=== PATIENT | male | born 1980 | race Caucasian/White ===

== ENCOUNTER 2017-04-04 09:16 | Emergency (ER) | payer OTHER ==
[2017-04-04 09:17] VITALS: BMI 38.2
[2017-04-04 09:27] VITALS: BP 112/73; PULSE 93; RESP 18; TEMP 98.2; O2SAT 98
--- NOTE | 2017-04-04 10:53 | C.PDOC ---
History Of Present Illness 36yo male presents to the ED for evaluation of decreased hearing in his left ear for the past two weeks. Pt reports his symptoms started after [place]; denies any pain, fever, discharge. Pt currently is using OTC ear drops for ear wax x two weeks without relief. He denies sore throat, cough, runny nose. Time Seen by Provider: 04/04/17 09:46 Chief Complaint (Nursing): ENT Problem History Per: Patient History/Exam Limitations: None Onset/Duration Of Symptoms: Days (2 weeks) Current Symptoms Are (Timing): Still Present Quality (Ear): denies: Discharge Symptoms Have Been: Continuous Severity: Mild Past Medical History Reviewed: Historical Data, Nursing Documentation, Vital Signs Vital Signs: Last Vital Signs Temp 98.2 F 04/04/17 09:25 Pulse 93 H 04/04/17 09:25 Resp 18 04/04/17 09:25 BP 112/73 04/04/17 09:25 Pulse Ox 98 04/04/17 11:06 - Medical History PMH: No Chronic Diseases Surgical History: No Surg Hx Family History: States: No Known Family Hx - Social History Hx Alcohol Use: No Hx Substance Use: No - Immunization History Hx Tetanus Toxoid Vaccination: No Hx Influenza Vaccination: Yes Hx Pneumococcal Vaccination: No Review Of Systems Except As Marked, All Systems Reviewed And Found Negative. Constitutional: Negative for: Fever ENT: Positive for: Other (decreased hearing left ear). Negative for: Ear Discharge, Nose Discharge, Nose Congestion, Throat Pain Respiratory: Negative for: Cough, Shortness of Breath Skin: Negative for: Rash Physical Exam - Physical Exam Appears: Well, Non-toxic, No Acute Distress Skin: Normal Color, Warm, Dry, No Rash Ear(s): Bilateral: TM Obscured By Wax (no canal erythema noted), Other (no discharge noted) Nose: Normal Oral Mucosa: Moist Throat: Normal, No Erythema, No Exudate Cardiovascular: Rhythm Regular Respiratory: Normal Breath Sounds, No Rales, No Rhonchi, No Wheezing Neurological/Psych: Oriented x3 ED Course And Treatment O2 Sat by Pulse Oximetry: 98 (RA) Pulse Ox Interpretation: Normal Progress Note: Debrox instilled into left ear by me. Ear then irrigated with normal saline using 18 gauge angiocath - (+) successful removal of cerumen impaction. Patient reports being able to hear well now. He was given Rx for Debrox, and instructed to follow up with ENt within 1 week. He understands he should return to ED if symptoms worsen. Reevaluation Time: 11:10 Reassessment Condition: Improved Disposition Counseled Patient/Family Regarding: Diagnosis, Need For Followup, Rx Given - Disposition Referrals: Kain Lewis MD [Staff Provider] - [facility] [Outside] [facility] [Outside] Disposition: HOME/ ROUTINE Disposition Time: 11:10 Condition: STABLE Prescriptions: Carbamide Peroxide [Debrox] 5 drop OT BID #1 bottle Instructions: Cerumen Impaction (ED) Forms: [employer] (Japanese) Print Language: SWEDISH - POA Present On Arrival: None - Clinical Impression Clinical Impression: Impacted cerumen of left ear - Scribe Statement The provider has reviewed the documentation as recorded by the Scribe Sudha Sharif Provider Attestation: Provider Scribe Attestation: All medical record entries made by the Scribe were at my direction and personally dictated by me. I have reviewed the chart and agree that the record accurately reflects my personal performance of the history, physical exam, medical decision making, and the department course for this patient. I have also personally directed, reviewed, and agree with the discharge instructions and disposition.
== END 2017-04-04 11:08 | disposition home or self-care (01) ==
LOC: C.ER 09:16
DX: H61.22 Impacted cerumen, left ear (principal)

== ENCOUNTER 2017-04-24 12:38 | Emergency (ER) | payer OTHER ==
[2017-04-24 12:39] VITALS: BMI 38.2
[2017-04-24 12:42] VITALS: TEMP 97.3
--- NOTE | 2017-04-24 13:30 | C.PDOC ---
History Of Present Illness 36 year old male presents to the ED with complaints of swelling to the right side of the abdomen for one month. Patient denies abdominal pain, diarrhea, nausea, vomiting, or fever. Patient reports PMD follow-up on 05/22 Time Seen by Provider: 04/24/17 12:47 Chief Complaint (Nursing): GI Problem History Per: Patient History/Exam Limitations: no limitations Onset/Duration Of Symptoms: Persistent (1 month ) Current Symptoms Are (Timing): Still Present Location Of Pain/Discomfort: Other (right side abdominal swelling ) Radiation Of Pain To:: None Associated Symptoms: denies: Fever, Chills, Nausea, Vomiting, Diarrhea Recent travel outside of the [place]: No Past Medical History Reviewed: Historical Data, Nursing Documentation, Vital Signs Vital Signs: Last Vital Signs Temp 97.3 F L 04/24/17 12:40 Pulse 78 04/24/17 16:19 Resp 18 04/24/17 16:19 BP 119/80 04/24/17 16:19 Pulse Ox 98 04/24/17 16:19 Family History: States: Unknown Family Hx - Social History Hx Alcohol Use: No Hx Substance Use: No - Immunization History Hx Tetanus Toxoid Vaccination: No Hx Influenza Vaccination: Yes Hx Pneumococcal Vaccination: No Review Of Systems Constitutional: Negative for: Fever, Chills Cardiovascular: Negative for: Chest Pain Respiratory: Negative for: Shortness of Breath Gastrointestinal: Positive for: Other (right sided abdominal swelling ). Negative for: Nausea, Vomiting, Abdominal Pain, Diarrhea, Constipation Genitourinary: Negative for: Dysuria, Hematuria Physical Exam - Physical Exam Appears: Well, Non-toxic, No Acute Distress Skin: Warm, Dry Head: Atraumatic Eye(s): bilateral: Normal Inspection Oral Mucosa: Moist Neck: Supple Chest: Symmetrical, No Deformity Cardiovascular: Rhythm Regular Respiratory: Normal Breath Sounds, No Rales, No Rhonchi, No Wheezing Gastrointestinal/Abdominal: Soft, No Tenderness, No Mass, No Distention, No Guarding, No Rebound Back: Normal Inspection Extremity: Normal ROM Neurological/Psych: Oriented x3, Normal Speech, Normal Cognition ED Course And Treatment - Laboratory Results Result Diagrams: 04/24/17 13:52 04/24/17 13:52 O2 Sat by Pulse Oximetry: 95 (room air ) - CT Scan/US Abdomen and Pelvis CT Other Rad Studies (CT/US): Read By Radiologist, Radiology Report Reviewed Progress Note: Abdomen and pelvis CTand labs were ordered. Medical Decision Making Medical Decision Making: Patient has a normal physical exam and I cannot appreciate the swelling patient is concerned about. Labs grossly normal. FINDINGS: Images were obtained in a delayed phase due to patient nausea at the beginning of the examination. LOWER THORAX: No visible consolidation, pleural effusion, or pneumothorax. Tiny hiatal hernia/distal esophageal wall thickening. LIVER: Unremarkable. GALLBLADDER AND BILE DUCTS: Unremarkable. PANCREAS: Unremarkable. SPLEEN: Unremarkable. ADRENALS: Unremarkable. KIDNEYS AND URETERS: The kidneys enhance symmetrically. No hydronephrosis or obstructing calculus identified. VASCULATURE: No aortic aneurysm. BOWEL: Stomach is nondistended. Lack of oral contrast limits evaluation for bowel pathology. Bowel loops appear within normal limits of caliber without evidence of obstruction. APPENDIX: No secondary signs of acute appendicitis. PERITONEUM: No significant free fluid. No definite free air. LYMPH NODES: No bulky adenopathy identified. BLADDER: Unremarkable. REPRODUCTIVE: Unremarkable. BONES: 8 mm sclerotic focus within the T11 vertebral body, possibly bone island. Minimal degenerative changes. No acute osseous abnormality is detected. OTHER FINDINGS: Tiny fat containing umbilical hernia Bilateral fat containing inguinal hernias. IMPRESSION: No acute pathology identified. Incidental findings as above. Patient was made aware of CT results and will follow-up with PMD at scheduled visit. Disposition - Disposition Disposition: HOME/ ROUTINE Disposition Time: 16:08 Condition: GOOD Additional Instructions: Follow up with clinic on 05/22. Return to ED if condition worsens. Instructions: Inguinal Hernia (ED), Umbilical Hernia (ED) Print Language: GERMAN - Clinical Impression Clinical Impression: Umbilical hernia, Inguinal hernia - Scribe Statement The provider has reviewed the documentation as recorded by the Scribe Keke Freeman All medical record entries made by the Scribe were at my direction and personally dictated by me. I have reviewed the chart and agree that the record accurately reflects my personal performance of the history, physical exam, medical decision making, and the department course for this patient. I have also personally directed, reviewed, and agree with the discharge instructions and disposition.
[2017-04-24 13:56] LABS: BASO # 0.1 K/uL (0.0-0.2); BASO % 0.9 % (0.0-2.0); EOS # 0.1 K/uL (0.0-0.7); HEMATOCRIT 45.2 % (35.0-51.0); LYMPH # 2.3 K/uL (1.0-4.3); LYMPH % 32.8 % (20.0-40.0); MEAN CELL VOLUME 85.5 fL (80.0-94.0); MEAN CORPUSCULAR HEMOGLOBIN 28.6 pg (27.0-31.0); MEAN CORPUSCULAR HGB CONC 33.4 g/dL (33.0-37.0); MEAN PLATELET VOLUME 8.6 fL (7.2-11.7); MONO # 0.6 K/uL (0.0-0.8); MONO % 7.9 % (0.0-10.0); RED CELL DISTRIBUTION WIDTH 12.9 % (11.5-14.5)
[2017-04-24 14:06] LABS: CHLORIDE 101 mmol/L (98-107)
[2017-04-24 14:07] LABS: POTASSIUM 3.9 mmol/L (3.6-5.2); SODIUM 137 mmol/L (132-148)
[2017-04-24 14:09] LABS: ALB/GLOB RATIO 1.1 (1.0-2.1); ALKALINE PHOSPHATASE 49 U/L (38-126); AST/SGOT 26 U/L (17-59); BILIRUBIN,TOTAL 0.8 mg/dL (0.2-1.3); BLOOD UREA NITROGEN 15 mg/dL (9-20); CARBON DIOXIDE 22 mmol/L (22-30); GFR AFRICAN-AMERICAN > 60; TOTAL PROTEIN 7.4 g/dL (6.3-8.3)
[2017-04-24 14:10] LABS: ALT/SGPT 49 U/L (21-72); GLUCOSE,RANDOM 99 mg/dL (75-110)
[2017-04-24] MEDS ORDERED: Iodixanol 320 mg/ml 150 ml Bottle IV ONE (15:06)
--- NOTE | 2017-04-24 16:08 | CT ---
PROCEDURE: CT Abdomen and Pelvis with contrast HISTORY: abdominal distension COMPARISON: None available. TECHNIQUE: Contrast dose: 100 cc Visipaque 320 Radiation dose: Total exam DLP = 1029.99 mGy-cm. This CT exam was performed using one or more of the following dose reduction techniques: Automated exposure control, adjustment of the mA and/or kV according to patient size, and/or use of iterative reconstruction technique. FINDINGS: Images were obtained in a delayed phase due to patient nausea at the beginning of the examination. LOWER THORAX: No visible consolidation, pleural effusion, or pneumothorax. Tiny hiatal hernia/distal esophageal wall thickening. LIVER: Unremarkable. GALLBLADDER AND BILE DUCTS: Unremarkable. PANCREAS: Unremarkable. SPLEEN: Unremarkable. ADRENALS: Unremarkable. KIDNEYS AND URETERS: The kidneys enhance symmetrically. No hydronephrosis or obstructing calculus identified. VASCULATURE: No aortic aneurysm. BOWEL: Stomach is nondistended. Lack of oral contrast limits evaluation for bowel pathology. Bowel loops appear within normal limits of caliber without evidence of obstruction. APPENDIX: No secondary signs of acute appendicitis. PERITONEUM: No significant free fluid. No definite free air. LYMPH NODES: No bulky adenopathy identified. BLADDER: Unremarkable. REPRODUCTIVE: Unremarkable. BONES: 8 mm sclerotic focus within the T11 vertebral body, possibly bone island. Minimal degenerative changes. No acute osseous abnormality is detected. OTHER FINDINGS: Tiny fat containing umbilical hernia Bilateral fat containing inguinal hernias. IMPRESSION: No acute pathology identified. Incidental findings as above.
[2017-04-24 16:21] VITALS: BP 119/80; PULSE 78; RESP 18
[2017-04-24 18:07] VITALS: O2SAT 95
== END 2017-04-24 16:21 | disposition home or self-care (01) ==
LOC: C.ER 12:38
DX: K42.9 Umbilical hernia without obstruction or gangrene (principal); K40.90 Unilateral inguinal hernia, without obstruction or gangrene, not specified as recurrent
CPT/HCPCS: 74177; 80053; 83690; 85025; 99284; Q9967

== ENCOUNTER 2017-09-09 10:28 | Emergency (ER) | payer OTHER ==
[2017-09-09 10:34] VITALS: RESP 18; BMI 34.3
[2017-09-09 11:58] LABS: BASO # 0.1 K/uL (0.0-0.2); BASO % 1.1 % (0.0-2.0); EOS # 0.2 K/uL (0.0-0.7); EOS % 2.8 % (0.0-4.0); HEMOGLOBIN 15.5 g/dL (12.0-18.0); LYMPH # 2.1 K/uL (1.0-4.3); LYMPH % 31.2 % (20.0-40.0); MEAN CELL VOLUME 86.5 fL (80.0-94.0); MEAN CORPUSCULAR HEMOGLOBIN 29.3 pg (27.0-31.0); MEAN CORPUSCULAR HGB CONC 33.9 g/dL (33.0-37.0); MEAN PLATELET VOLUME 8.8 fL (7.2-11.7); MONO # 0.5 K/uL (0.0-0.8); MONO % 8.3 % (0.0-10.0); NEUT # 3.7 K/uL (1.8-7.0); NEUT % 56.6 % (50.0-75.0); RBC 5.27 Mil/uL (4.40-5.90); WHITE BLOOD COUNT 6.6 K/uL (4.8-10.8)
[2017-09-09 12:18] LABS: URINE BILIRUBIN NEGATIVE (NEGATIVE); URINE BLOOD NEGATIVE (NEGATIVE); URINE CLARITY Clear (Clear); URINE COLOR Yellow (YELLOW); URINE GLUCOSE (UA) NORMAL (Normal); URINE LEUKOCYTE ESTERASE NEG Leu/uL (Negative); URINE NITRATE NEGATIVE (NEGATIVE); URINE PROTEIN NEGATIVE (NEGATIVE); URINE UROBILINOGEN NORMAL mg/dL (0.2-1.0)
[2017-09-09 12:18] LABS: ALB/GLOB RATIO 1.2 (1.0-2.1); ALT/SGPT 34 U/L (21-72); AMYLASE 51 U/L (30-110); AST/SGOT 22 U/L (17-59); BLOOD UREA NITROGEN 13 mg/dL (9-20); CALCIUM 8.5 mg/dl (8.6-10.4); GFR AFRICAN-AMERICAN > 60; GFR NON-AFRICAN AMERICAN > 60; LIPASE 112 U/L (23-300)
--- NOTE | 2017-09-09 13:21 | US ---
HISTORY: epigastric and RUQ pain COMPARISON: CT abdomen and pelvis with IV contrast performed 04/24/17 TECHNIQUE: Sonographic evaluation of the right upper quadrant of the abdomen. FINDINGS: LIVER: Measures 15.5 cm in length. Echogenic liver may be seen in setting of hepatic parenchymal disease or fatty infiltration. The main portal vein appears patent with normal directional flow. No intrahepatic bile duct dilatation. GALLBLADDER: No gallstones. No gallbladder wall thickening or pericholecystic edema. Negative sonographic Owens's sign as assessed by the accounting administrator. COMMON BILE DUCT: Measures 3 mm. PANCREAS: Not well-visualized. RIGHT KIDNEY: Measures 11.3 x 6.9 x 5.5 cm. No obstructing calculus or hydronephrosis identified. AORTA: Limited visualization appears grossly unremarkable. IVC: Limited visualization appears grossly unremarkable. OTHER FINDINGS: None . IMPRESSION: Echogenic liver may be seen in setting of hepatic parenchymal disease or fatty infiltration.
--- NOTE | 2017-09-09 13:52 | C.PDOC ---
History Of Present Illness 37 year old male presents to the ED c/o RUQ and epigastric pain for the past 4 months. Patient reports he was seen in the ED on June was sent to the clinic and he has an appointment for the end of September there. Patient presents today because he feel nervous and anxious because his pain is still present, Patient states he has no pain right now. Patient denies fever, chills, nausea, fever, vomit, diarrhea, back pain, dysuria, hematuria. Time Seen by Provider: 09/09/17 11:01 Chief Complaint (Nursing): Abdominal Pain History Per: Patient History/Exam Limitations: no limitations Onset/Duration Of Symptoms: Days Current Symptoms Are (Timing): Still Present Location Of Pain/Discomfort: RUQ, Epigastric Radiation Of Pain To:: None Quality Of Discomfort: "Pain" Associated Symptoms: denies: Fever, Nausea, Vomiting, Diarrhea, Constipation Alleviating Factors: None Recent travel outside of the [place]: No Additional History Per: Patient Past Medical History Reviewed: Historical Data, Nursing Documentation, Vital Signs Vital Signs: Last Vital Signs Temp 98.2 F 09/09/17 14:12 Pulse 88 09/09/17 14:12 Resp 18 09/09/17 14:12 BP 131/87 09/09/17 14:12 Pulse Ox 99 09/09/17 15:33 - Medical History PMH: Gastritis Surgical History: No Surg Hx Family History: States: Unknown Family Hx - Social History Hx Alcohol Use: No Hx Substance Use: No - Immunization History Hx Tetanus Toxoid Vaccination: No Hx Influenza Vaccination: Yes Hx Pneumococcal Vaccination: No Review Of Systems Constitutional: Negative for: Fever, Chills Cardiovascular: Negative for: Chest Pain, Palpitations Respiratory: Negative for: Cough Gastrointestinal: Positive for: Abdominal Pain. Negative for: Nausea, Vomiting Genitourinary: Negative for: Dysuria, Hematuria Musculoskeletal: Negative for: Back Pain Skin: Negative for: Rash Neurological: Negative for: Weakness, Numbness Physical Exam - Physical Exam Appears: Non-toxic, No Acute Distress Skin: Normal Color, Warm, Dry Head: Atraumatic, Normacephalic Nose: No Discharge, No Deformity Oral Mucosa: Moist Neck: Normal ROM, Supple Chest: Symmetrical Cardiovascular: Rhythm Regular, No Murmur Respiratory: Normal Breath Sounds, No Rales, No Rhonchi, No Wheezing Gastrointestinal/Abdominal: Soft, No Tenderness, No Guarding, No Rebound Extremity: Normal ROM, No Pedal Edema, No Calf Tenderness, No Deformity, No Swelling Neurological/Psych: Oriented x3, Normal Speech, Normal Cognition Gait: Steady ED Course And Treatment - Laboratory Results Result Diagrams: 09/09/17 11:54 09/09/17 11:54 O2 Sat by Pulse Oximetry: 99 (On RA) Pulse Ox Interpretation: Normal - CT Scan/US Abdomen US Other Rad Studies (CT/US): Read By Radiologist, Radiology Report Reviewed CT/US Interpretation: HISTORY: epigastric and RUQ pain. COMPARISON: CT abdomen and pelvis with IV contrast performed 04/24/17. TECHNIQUE: Sonographic evaluation of the right upper quadrant of the abdomen. FINDINGS: LIVER: Measures 15.5 cm in length. Echogenic liver may be seen in setting of hepatic parenchymal disease or fatty infiltration. The main portal vein appears patent with normal directional flow. No intrahepatic bile duct dilatation. GALLBLADDER : No gallstones. No gallbladder wall thickening or pericholecystic edema. Negative sonographic Owens's sign as assessed by the ground intelligence officer. COMMON BILE DUCT: Measures 3 mm. PANCREAS: Not well-visualized. RIGHT KIDNEY: Measures 11.3 x 6.9 x 5.5 cm. No obstructing calculus or hydronephrosis identified. AORTA: Limited visualization appears grossly unremarkable. IVC: Limited visualization appears grossly unremarkable. OTHER FINDINGS: None . IMPRESSION : Echogenic liver may be seen in setting of hepatic parenchymal disease or fatty infiltration. Progress Note: Plan: -Labs. -UA. -Abdomen US Disposition - Disposition Referrals: [facility] [Outside] Disposition: HOME/ ROUTINE Disposition Time: 13:50 Condition: STABLE Additional Instructions: Follow up in Clinic within 1-2 days. Return to ED if feel worse. 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 - Scribe Statement The provider has reviewed the documentation as recorded by the Scribe Micky Abrams All medical record entries made by the Scribe were at my direction and personally dictated by me. I have reviewed the chart and agree that the record accurately reflects my personal performance of the history, physical exam, medical decision making, and the department course for this patient. I have also personally directed, reviewed, and agree with the discharge instructions and disposition.
[2017-09-09 14:14] VITALS: BP 131/87; PULSE 88; TEMP 98.2
[2017-09-09 15:26] VITALS: O2SAT 99
== END 2017-09-09 14:14 | disposition home or self-care (01) ==
LOC: C.ER 10:28
DX: R10.13 Epigastric pain (principal)

== ENCOUNTER 2018-03-28 22:28 | Emergency (ER) | payer OTHER ==
[2018-03-28 22:28] VITALS: BMI 34.3
[2018-03-28 22:39] VITALS: BP 138/79; TEMP 98; O2SAT 100
--- NOTE | 2018-03-28 22:53 | C.PDOC ---
History Of Present Illness Patient states that he was on the phone having an argument. He began to feel agitated and was breathing heavily. He developed a pressure sensation in his ears with a mild headache. He felt a numbness and tingling in his hands. He claims the headache has since resolved and his breathing has returned to normal but he continues to feel mildly weak. He denies associate chest pain or palpitations. Time Seen by Provider: 03/28/18 22:45 Chief Complaint (Nursing): Headache History Per: Patient History/Exam Limitations: no limitations Onset/Duration Of Symptoms: Mins, Gradual Current Symptoms Are (Timing): Gone Severity: Mild Quality: Dull, Pressure Preceeding Symptoms: None Associated Symptoms: Other (shortness of breath) Past Medical History Vital Signs: Last Vital Signs Temp 98.0 F 03/28/18 22:34 Pulse 75 03/28/18 22:34 Resp 18 03/28/18 22:34 BP 138/79 03/28/18 22:34 Pulse Ox 100 03/28/18 22:34 - Medical History PMH: Gastritis Surgical History: No Surg Hx Family History: States: Unknown Family Hx - Social History Hx Tobacco Use: No Hx Alcohol Use: No Hx Substance Use: No - Immunization History Hx Tetanus Toxoid Vaccination: No Hx Influenza Vaccination: Yes Hx Pneumococcal Vaccination: No Review Of Systems Constitutional: Positive for: Weakness ENT: Positive for: Ear Pain (pressure) Cardiovascular: Negative for: Chest Pain, Palpitations, Light Headedness Respiratory: Positive for: Shortness of Breath Gastrointestinal: Negative for: Nausea, Vomiting, Abdominal Pain Neurological: Positive for: Weakness (generalized, subjective), Numbness (in hands), Headache, Dizziness. Negative for: Incoordination, Change in Speech, Confusion Psych: Positive for: Anxiety Physical Exam - Physical Exam Appears: Well, No Acute Distress Skin: Normal Color, Warm, Dry Head: Atraumatic Eye(s): bilateral: Normal Inspection, PERRL, EOMI Ear(s): Bilateral: Normal Nose: Normal Oral Mucosa: Moist Lips: Normal Appearing Neck: Normal ROM Lymphatic: No Adenopathy Chest: Symmetrical Cardiovascular: Rhythm Regular Respiratory: Normal Breath Sounds Gastrointestinal/Abdominal: Normal Exam, Soft Extremity: Bilateral: Atraumatic Pulses: Left Carotid: Normal, Right Carotid: Normal Neurological/Psych: Oriented x3, Normal Speech, Normal Cognition, Normal Cranial Nerves, Normal Motor, Normal Sensation, Normal Reflexes ED Course And Treatment O2 Sat by Pulse Oximetry: 100 Disposition Counseled Patient/Family Regarding: Diagnosis, Need For Followup - Disposition Referrals: [facility] [Outside] Disposition: HOME/ ROUTINE Disposition Time: 22:57 Condition: IMPROVED Instructions: Hyperventilation Forms: [employer] (Amharic) - Clinical Impression Clinical Impression: Headache, Hyperventilation
[2018-03-28 23:03] VITALS: PULSE 70; RESP 16
== END 2018-03-28 23:02 | disposition home or self-care (01) ==
LOC: C.ER 22:28
DX: R51 Headache (principal); R06.4 Hyperventilation

== ENCOUNTER 2018-05-18 19:18 | Emergency (ER) | payer OTHER ==
[2018-05-18 19:19] VITALS: BMI 34.3
[2018-05-18 19:33] VITALS: BP 128/85; PULSE 84; RESP 16; O2SAT 97
[2018-05-18] MEDS ORDERED: Lidocaine 5% Patch TD STA (19:45)
[2018-05-18] MEDS ORDERED: Lidocaine 5% Patch TD ONE (19:57)
--- NOTE | 2018-05-18 20:08 | C.PDOC ---
History Of Present Illness 38yo male, otherwise well, comes to ER with complaints of right lower back pain x 1 day, worse with movement. He states he has been taking Tylenol (is allergic to Aspirin and Motrin) with minimal relief of symptoms. Patient denies any heavy lifting, trauma, weakness or numbness of lower extremities, bowel or bladder dysfunction. He has no additional medical complaints. PMD: None provided Time Seen by Provider: 05/18/18 19:40 Chief Complaint (Nursing): Back Pain History Per: Patient History/Exam Limitations: no limitations Onset/Duration Of Symptoms: Days (1) Current Symptoms Are (Timing): Still Present Quality Of Discomfort: "Pain" Associated Symptoms: denies: Incontinence, New Weakness, New Numbness Exacerbating Factor(s): Movement Additional History Per: Patient Past Medical History Reviewed: Historical Data, Nursing Documentation, Vital Signs Vital Signs: Last Vital Signs Temp Pulse 84 05/18/18 19:31 Resp 16 05/18/18 19:31 BP 128/85 05/18/18 19:31 Pulse Ox 97 05/18/18 20:22 - Medical History PMH: Gastritis Denies: Chronic Kidney Disease Surgical History: No Surg Hx Family History: States: Unknown Family Hx - Social History Hx Tobacco Use: No Hx Alcohol Use: No Hx Substance Use: No - Immunization History Hx Tetanus Toxoid Vaccination: No Hx Influenza Vaccination: Yes Hx Pneumococcal Vaccination: No Review Of Systems Except As Marked, All Systems Reviewed And Found Negative. Genitourinary: Negative for: Incontinence Musculoskeletal: Positive for: Back Pain Neurological: Negative for: Weakness, Numbness Physical Exam - Physical Exam Appears: Non-toxic, No Acute Distress Skin: Normal Color Head: Atraumatic, Normacephalic Eye(s): bilateral: Normal Inspection Neck: Supple Chest: Symmetrical Back: Normal Inspection, No CVA Tenderness, No Vertebral Tenderness, Paraspinal Tenderness (right paralumbar tenderness) Extremity: Bilateral: Atraumatic, Normal ROM Neurological/Psych: Oriented x3, Normal Speech ED Course And Treatment O2 Sat by Pulse Oximetry: 97 (RA) Pulse Ox Interpretation: Normal Medical Decision Making Medical Decision Making: Impression: Right lower back pain, likely musculoskeletal Plan: -- Tylenol 975mg PO -- FLexeril 10mg PO -- Lidoderm patch On reassessment, patient reports improvement in pain. Instructed to take medications as advised and to follow up with PMD in 2-3 days. Disposition Counseled Patient/Family Regarding: Diagnosis, Need For Followup, Rx Given - Disposition Referrals: Mery Lerma MD [Staff Provider] - Disposition: HOME/ ROUTINE Disposition Time: 20:07 Condition: STABLE Additional Instructions: Aplicar calor al jennifer New Deal tylenol para el dolor cada 6 horas New Deal el relajante muscular Flexeril cada 8 horas, segn sea necesario, puede causar somnolencia seguimiento en la clnica Prescriptions: Acetaminophen [Tylenol Arthritis] 650 mg PO Q8 #30 tablet.er Cyclobenzaprine [Cyclobenzaprine HCl] 10 mg PO TID #30 tab Instructions: Low Back Pain (DC) Forms: [employer] (Ghanaian) - POA Present On Arrival: None - Clinical Impression Clinical Impression: Thoracic back sprain, Low back strain - 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 - Scribe Statement The provider has reviewed the documentation as recorded by the Scribe (Sudha Sharif) Provider Attestation: All medical record entries made by the Scribe were at my direction and personally dictated by me. I have reviewed the chart and agree that the record accurately reflects my personal performance of the history, physical exam, medical decision making, and the department course for this patient. I have also personally directed, reviewed, and agree with the discharge instructions and disposition.
== END 2018-05-18 20:15 | disposition home or self-care (01) ==
LOC: C.ER 19:18
DX: S23.3XXA Sprain of ligaments of thoracic spine, initial encounter (principal); S39.012A Strain of muscle, fascia and tendon of lower back, initial encounter; X58.XXXA Exposure to other specified factors, initial encounter; Y92.9 Unspecified place or not applicable

== ENCOUNTER 2018-05-20 05:12 | Emergency (ER) | payer OTHER ==
[2018-05-20 05:12] VITALS: BMI 34.3
[2018-05-20 05:32] VITALS: RESP 18
--- NOTE | 2018-05-20 05:47 | C.PDOC ---
History Of Present Illness 38 year old male presents to the ER with a complaint of right sided back pain for the past 3 days. Patient was seen in this ER 2 days ago for the same complaint, he was discharged home on tylenol and a muscle relaxant, however, he states the pain has not improved. Denies weakness, numbness, incontinence, dysuria, hematuria, abdominal pain, fever, or chills.pain worse with movement. pt takeing muscle relaxant as prescribed, but only Tylenol 2 times a day. Time Seen by Provider: 05/20/18 05:33 Chief Complaint (Nursing): Back Pain History Per: Patient History/Exam Limitations: no limitations Onset/Duration Of Symptoms: Days Current Symptoms Are (Timing): Still Present Quality Of Discomfort: Unable To Describe Associated Symptoms: None Recent travel outside of the [place]: No Past Medical History Reviewed: Historical Data, Nursing Documentation, Vital Signs Vital Signs: Last Vital Signs Temp 98.1 F 05/20/18 06:39 Pulse 72 05/20/18 06:39 Resp 18 05/20/18 06:39 BP 130/78 05/20/18 06:39 Pulse Ox 99 05/21/18 00:56 - Medical History PMH: Gastritis Denies: Chronic Kidney Disease Family History: States: Unknown Family Hx - Social History Hx Tobacco Use: No Hx Alcohol Use: No Hx Substance Use: No - Immunization History Hx Tetanus Toxoid Vaccination: No Hx Influenza Vaccination: Yes Hx Pneumococcal Vaccination: No Review Of Systems Constitutional: Negative for: Fever, Chills Gastrointestinal: Negative for: Vomiting Genitourinary: Negative for: Dysuria, Incontinence, Hematuria Musculoskeletal: Positive for: Back Pain Neurological: Negative for: Weakness, Numbness Physical Exam - Physical Exam Appears: Non-toxic, No Acute Distress Skin: Warm, Dry Head: Atraumatic, Normacephalic Eye(s): bilateral: Normal Inspection Oral Mucosa: Moist Chest: Symmetrical, No Tenderness Cardiovascular: Rhythm Regular, No Murmur Respiratory: Normal Breath Sounds, No Rales, No Rhonchi, No Wheezing Gastrointestinal/Abdominal: Bowel Sounds, Soft, No Tenderness, No Distention, No Guarding, No Rebound Back: No Vertebral Tenderness, Paraspinal Tenderness (Right thoracic) Extremity: Normal ROM (x4), No Pedal Edema, No Calf Tenderness, No Swelling Extremity: Bilateral: Atraumatic Neurological/Psych: Oriented x3, Normal Speech, Normal Cognition, Normal Motor, Normal Sensation Gait: Steady ED Course And Treatment - Laboratory Results Result Diagrams: 05/20/18 06:00 05/20/18 06:00 O2 Sat by Pulse Oximetry: 99 (room air) Pulse Ox Interpretation: Normal Medical Decision Making Medical Decision Making: Blood work and urinalysis ordered. Tylenol administered. pt's second visit for same back pain, will check ua and labs. 0629 cbc and cmp normal. ua with +1 blood, <1 rbc. no nitrite or le. d/c home with instructions to take Tylenol more frequently, continue flexeril and f/u med clinic. Disposition Counseled Patient/Family Regarding: Studies Performed, Diagnosis, Need For Followup, Rx Given - Disposition Disposition: HOME/ ROUTINE Disposition Time: 06:32 Condition: GOOD Additional Instructions: Siga tomando relajante muscular 3 veces al da. Nye Tylenol con mayor frecuencia, cada 4-6 horas. Compresas calientes al jennifer dolorosa Evite la juvenal pesada. Skyler un seguimiento en la clnica mdica para volver a evaluarlo y derivarlo a fisioterapia si el dolor persiste. Keep taking muscle relaxant 3 times a day. Take Tylenol more frequently- every 4-6 hours. Warm compresses to painful area. Avoid heavy lifitng. Follow up in medical clinic for re-evaluatin and referral to physical therapy if pain persists. Instructions: Low Back Pain (DC) Forms: Gen Discharge Inst Burmese, [facility] (Burmese) Print Language: JAMAICAN - Clinical Impression Clinical Impression: Thoracic back sprain - Scribe Statement The provider has reviewed the documentation as recorded by the Scribe Rei Jameson All medical record entries made by the Scribe were at my direction and personally dictated by me. I have reviewed the chart and agree that the record accurately reflects my personal performance of the history, physical exam, medical decision making, and the department course for this patient. I have also personally directed, reviewed, and agree with the discharge instructions and disposition.
[2018-05-20 06:04] LABS: BASO % 0.4 % (0.0-2.0); EOS # 0.2 K/uL (0.0-0.7); EOS % 2.5 % (0.0-4.0); HEMOGLOBIN 15.8 g/dL (12.0-18.0); LYMPH # 2.3 K/uL (1.0-4.3); MEAN CELL VOLUME 85.9 fL (80.0-94.0); MEAN CORPUSCULAR HEMOGLOBIN 29.2 pg (27.0-31.0); MEAN PLATELET VOLUME 8.8 fL (7.2-11.7); MONO # 0.6 K/uL (0.0-0.8); MONO % 8.5 % (0.0-10.0); NEUT # 3.9 K/uL (1.8-7.0); NEUT % 55.6 % (50.0-75.0); NRBC % 0.1 % (0.0-2.0); RBC 5.4 Mil/uL (4.40-5.90); RED CELL DISTRIBUTION WIDTH 12.5 % (11.5-14.5); WHITE BLOOD COUNT 7.1 K/uL (4.8-10.8)
[2018-05-20 06:06] LABS: URINE BILIRUBIN NEGATIVE (NEGATIVE); URINE BLOOD 1+ (NEGATIVE); URINE CLARITY Clear (Clear); URINE COLOR Yellow (YELLOW); URINE GLUCOSE (UA) NORMAL (Normal); URINE LEUKOCYTE ESTERASE NEG Leu/uL (Negative); URINE PROTEIN NEGATIVE (NEGATIVE); URINE UROBILINOGEN NORMAL mg/dL (0.2-1.0)
[2018-05-20 06:16] LABS: ALB/GLOB RATIO 1.2 (1.0-2.1); ALBUMIN 4.2 g/dL (3.5-5.0); ALT/SGPT 47 U/L (21-72); AST/SGOT 25 U/L (17-59); BLOOD UREA NITROGEN 15 mg/dL (9-20); CALCIUM 9.3 mg/dl (8.6-10.4); GFR NON-AFRICAN AMERICAN > 60
[2018-05-20 06:40] VITALS: BP 130/78; PULSE 72; TEMP 98.1
[2018-05-21 00:56] VITALS: O2SAT 99
== END 2018-05-20 06:41 | disposition home or self-care (01) ==
LOC: C.ER 05:12
DX: S23.3XXD Sprain of ligaments of thoracic spine, subsequent encounter (principal); X58.XXXD Exposure to other specified factors, subsequent encounter